=== PATIENT | male | born 1990 | race Caucasian/White ===

== ENCOUNTER 2022-03-01 15:22 | Emergency (ER) | payer OTHER ==
[2022-03-01 15:36] VITALS: BP 157/97
[2022-03-01] MEDS ORDERED: BUPIVACAINE 0.5% PF 10 ML VIAL SUBQ STA (15:42)
[2022-03-01] MEDS ORDERED: TETANUS/DIPHTHERIA/PERTUSSIS 0.5 ML SYRINGE IM ONE (15:42)
--- NOTE | 2022-03-01 15:55 | ED Physician Documentation ---
PD HPI UPPER EXT INJURY - Stated complaint Stated Complaint: LT HAND LAC - Chief complaint Chief Complaint: Laceration - History obtained from History obtained from: Patient - History of Present Illness Location: Left, Finger (index) Type of injury: Laceration Where injury occurred: Home Timing - onset: How many hours ago (1) Timing - duration: Hours (1) Timing - details: Abrupt onset Pain level max: 8 Pain level now: 3 Improved by: Rest, Immobilization Worsened by: Moving, Palpating Associated symptoms: No: Weakness, Numbness, Tingling, Swelling Contributing factors: No: Anticoagulated, Prior ortho surgery Similar symptoms before: Has not had sx before Recently seen: Not recently seen - Additonal information Additional information: Patient with a left index finger laceration versus table saw. Unknown last tetanus shot. Patient is right-handed. Review of Systems Constitutional: denies: Fever, Chills GI: denies: Vomiting, Diarrhea Skin: denies: Rash Musculoskeletal: denies: Neck pain, Back pain Neurologic: denies: Headache PD PAST MEDICAL HISTORY - Past Medical History Past Medical History: No - Past Surgical History Past Surgical History: No - Present Medications Home Medications: Ambulatory Orders Medication Instructions Recorded Confirmed cephALEXin [Keflex] 500 mg PO Q6H #28 cap 03/01/22 - Allergies Allergies/Adverse Reactions: Allergies Allergy/AdvReac Type Severity Reaction Status Date / Time clindamycin Allergy Rash Verified 03/01/22 15:36 - Living Situation Living Situation: reports: With family Living Arrangement: reports: At home - Family History Family history: reports: Non contributory - Immunizations Immunizations: TDAP >10years/unknown PD ED PE NORMAL - Vitals Vital signs reviewed: Yes - General General: Alert and oriented X 3 - HEENT HEENT: Moist mucous membranes - Respiratory Respiratory: No respiratory distress - Derm Derm: Warm and dry - Neuro Neuro: Alert and oriented X 3 - Free text exam Free text exam: L index finger - There is a partial distal tip amputation, no bone exposed. There is a laceration that extends from the nail fold through the base of the nail plate and up to the DIP joint. Neurovascularly intact. PD ED PE EXPANDED - Extremities DAQUAN UE/Hands Visual: 1 - laceration (Laceration 3 cm, linear, through the nail. NVI) Results - Vitals Vitals: Vital Signs - 24 hr 03/01/22 15:33 Temperature 36.4 C L Heart Rate 79 Respiratory 14 Rate Blood Pressure 157/97 H O2 Saturation 97 Oxygen O2 Source Room air - Rads (name of study) L index finger Radiology: Final report received, See rad report Procedures - Laceration (location) Left index finger Length in cm: 3 Wound type: Irregular, Into subcut fat, Contaminated Neurovascular status: Sensory intact, Motor intact, Vascular intact Tendon involvement: Tendon intact Anesthesia: Marcaine 0.5% Wound preparation: Irrigated copiously NS, Wound explored, To the base Skin layer closure: Nylon, Dermabond, Interrupted, Size #-0 - enter number (4) Other: Patient tolerated well, No complications, Neurovascular intact, Dressing applied, Tetanus booster given PD Medical Decision Making - ED course Complexity details: reviewed results, re-evaluated patient, considered differential, d/w patient, d/w family ED course: 32-year-old male with a left index finger laceration on a table saw. Finger x- ray shows a possible small loose body, otherwise negative x-ray. The laceration was repaired with sutures. The distal tip of the finger was repaired using Dermabond after application of a finger tourniquet. The finger tourniquet was then removed with excellent hemostasis. A bandage was then applied to the wound and a splint applied over this to help protect the area. We will put the patient on antibiotics for home. Given Keflex here. He will follow closely with his doctor to ensure proper healing. Patient counseled regarding signs and symptoms for which I believe and urgent re-evaluation would be necessary. Patient with good understanding of and agreement to plan and is comfortable going home at this time This document was made in part using voice recognition software. While efforts are made to proofread this document, sound alike and grammatical errors may occu r. Departure - Departure Disposition: 01 Home, Self Care Clinical Impression: Finger laceration Qualifiers: Encounter type: initial encounter Finger: index finger Damage to nail status: with damage Foreign body presence: without foreign body Laterality: left Qualified Code(s): S61.311A - Laceration without foreign body of left index finger with damage to nail, initial encounter Condition: Good Instructions: ED Laceration Hand Follow-Up: your,doctor in 1 week [Other] Prescriptions: cephALEXin [Keflex] 500 mg PO Q6H #28 cap Comments: Please follow-up with your doctor in about 1 week for a wound check. You should have the sutures removed in approximately 10 to 14 days. Take all antibiotics until gone. Keep the wound clean. Do not apply ointment as this may dissolve the glue. Please return if you worsen. Discharge Date/Time: 03/01/22 16:47
--- NOTE | 2022-03-01 16:19 | XRAY Report ---
PROCEDURE: Finger(s) LT INDICATIONS: index finger vs table saw TECHNIQUE: AP hand, 3 views of the second finger(s) acquired. COMPARISON: None FINDINGS: Bones: No displaced fracture or dislocation. There might be a tiny bone fragment at the tuft of the d istal phalanx. Soft tissues: Suspected soft tissue injury at the tip of the index finger. IMPRESSION: Possible tiny bone fragment at the distal tuft of the distal phalanx. Otherwise no displaced fracture . Suspected distal soft tissue injury. Reviewed by: Toni Barton MD on 03/01/2022 3:18 PM [facility] Approved by: Toni Barton MD on 03/01/2022 3:18 PM [facility] Station ID: [id number]
[2022-03-01] MEDS ORDERED: cephALEXin 250 MG CAPSULE PO STA (16:27)
== END 2022-03-01 16:47 | disposition home or self-care (01) ==
LOC: ED 15:22
DX: S61.311A Laceration without foreign body of left index finger with damage to nail, initial encounter (principal); W27.0XXA Contact with workbench tool, initial encounter; Z23 Encounter for immunization; Z71.85 Encounter for immunization safety counseling
CPT/HCPCS: 12013; 73140; 90471; 90715; 99283; A9270

== ENCOUNTER 2023-10-11 10:25 | Emergency (ER) | payer OTHER ==
[2023-10-11 11:00] VITALS: BP 150/69; O2SAT 97
[2023-10-11 11:07] LABS: BILIRUBIN,URINE NEGATIVE (NEGATIVE); GLUCOSE, URINE (UA) NEGATIVE (NEGATIVE); KETONES,URINE (UA) NEGATIVE (NEGATIVE); LEUKOCYTE ESTERASE, URINE MODERATE (NEGATIVE); NITRITE,URINE NEGATIVE (NEGATIVE); OCCULT BLOOD,URINE MODERATE (NEGATIVE); PROTEIN,URINE NEGATIVE (NEGATIVE); UROBILINOGEN,URINE 0.2 (NORMAL) E.U./dL (NORMAL)
--- NOTE | 2023-10-11 11:09 | ED Physician Documentation ---
PD HPI MALE - Stated complaint Stated Complaint: - Chief complaint Chief Complaint: UTI - History obtained from History obtained from: Patient - History of Present Illness Timing - onset: Yesterday Timing - duration: Days Timing - details: Gradual onset Pain level max: 0 Pain level now: 0 Associated symptoms: Urinary frequency, Other (urgency). No: Unable to urinate, Discharge, Testiclar pain, Scrotal swelling, Abdominal pain, Back pain, Indwelling catheter PD HPI MALE CONTRIB FACTORS: Sexually active. No: Exposed to STD Similar symptoms before: Diagnosis - Additional information Additional information: 33 yo Male presents with urinary frequency and urgency over the last couple of days. He denies any dysuria however, has no flank pain, no hematuria, no abdominal pain. He did have some mild diarrhea prior to developing the urinary symptoms. He denies any penile discharge, no scrotal pain or swelling, no concern for STI. He has had a UTI in the past he believes about a year ago although states that he had UTI symptoms, and was placed on antibiotics but he believes that the culture ultimately was negative. Symptoms feel somewhat similar today though more pronounced. He has never had kidney stones, no prostate issues to his knowledge. Review of Systems Constitutional: reports: Reviewed and negative Eyes: reports: Reviewed and negative Ears: reports: Reviewed and negative Nose: reports: Reviewed and negative Throat: reports: Reviewed and negative Cardiac: reports: Reviewed and negative Respiratory: reports: Reviewed and negative GI: reports: Reviewed and negative : reports: Frequency, Hesitancy. denies: Dysuria, Hematuria, Discharge, Testicular pain, Testicular mass Skin: reports: Reviewed and negative Musculoskeletal: reports: Reviewed and negative Neurologic: reports: Reviewed and negative Psychiatric: reports: Reviewed and negative Endocrine: reports: Reviewed and negative PD PAST MEDICAL HISTORY - Past Medical History Past Medical History: No - Past Surgical History Past Surgical History: No - Present Medications Home Medications: Ambulatory Orders Medication Instructions Recorded Confirmed Cefuroxime Axetil [Cefuroxime] 500 mg PO BID 7 Days #14 tablet 10/11/23 - Allergies Allergies/Adverse Reactions: Allergies Allergy/AdvReac Type Severity Reaction Status Date / Time clindamycin Allergy Rash Verified 10/11/23 10:59 - Social History Does the pt smoke?: No Smoking Status: Never smoker Does the pt drink ETOH?: No Does the pt have substance abuse?: No - Immunizations Immunizations are current?: Yes Immunizations: TDAP >10years/unknown - POLST Patient has POLST: No PD ED PE NORMAL - Vitals Vital signs reviewed: Yes - General General: Alert and oriented X 3, No acute distress, Well developed/nourished - HEENT HEENT: Atraumatic, Moist mucous membranes - Cardiac Cardiac: RRR, No murmur - Respiratory Respiratory: No respiratory distress, Clear bilaterally - Abdomen Abdomen: Normal bowel sounds, Soft, Non tender, Non distended - Back Back: No CVA TTP - Derm Derm: Normal color, Warm and dry, No rash Results - Vitals Vitals: Vital Signs - 24 hr 10/11/23 10:56 Temperature 37.3 C Heart Rate 58 L Respiratory 20 Rate Blood Pressure 150/69 H O2 Saturation 97 Oxygen O2 Source Room air - Labs Labs: Laboratory Tests 10/11/23 10:51 Urine Color YELLOW Urine Clarity SL. CLOUDY Urine pH 6.0 Ur Specific [place] 1.015 Urine Protein NEGATIVE Urine Glucose (UA) NEGATIVE Urine Ketones NEGATIVE Urine Occult Blood MODERATE H Urine Nitrite NEGATIVE Urine Bilirubin NEGATIVE Urine Urobilinogen 0.2 (NORMAL) Ur Leukocyte Esterase MODERATE H Urine RBC 6-10 H Urine WBC >25 H Ur Squamous Epith Cells RARE Squamous Urine Bacteria Moderate H Ur Microscopic Review INDICATED Urine Culture Comments INDICATED PD Medical Decision Making - ED course Complexity details: reviewed results, re-evaluated patient, considered differential, d/w patient ED course: 33-year-old male presented with urinary frequency and urgency over the last couple of days. He had does not have any flank pain, no fever, no nausea or vomiting. Differentials considered include urinary tract infection, STI, ureteral stone, pyelonephritis, among others. The patient does not have any flank pain or fever however And actually no pain at all therefore I think unlikely to be a ureteral stone or pyelonephritis. Urinalysis is suggestive of infection however and therefore I am going to treat with cefuroxime pending urine culture. Patient has had similar symptoms in the past within the last year he believes and I discussed with him that it is a bit unusual to have 2 urinary tract infections in a short period of time for a male of his age show recommended follow-up with PCP and consider evaluation by urology if recurrent cyst. Return precautions reviewed if he developed a fever, flank pain, or symptoms not resolved by antibiotics or new concerns. Departure - Departure Disposition: Home, Self Care Clinical Impression: Urinary tract infection Qualifiers: Urinary tract infection type: acute cystitis Hematuria presence: without hematuria Qualified Code(s): N30.00 - Acute cystitis without hematuria Condition: Good Instructions: ED UTI Cystitis Male Follow-Up: Albino Rg MD [Provider Admit Priv/Credential] - Prescriptions: Cefuroxime Axetil [Cefuroxime] 500 mg PO BID 7 Days #14 tablet Comments: Your urinalysis is suggestive of a urinary tract infection. As we discussed, it is a little bit unusual for someone your age to have had 2 urinary tract infections in the recent past. I do recommend a follow-up with your primary doctor and possibly the urologist as well to see if there is any structural abnormality that is causing you to have a urinary tract infections. If you develop a fever, flank pain, vomiting, scrotal pain or swelling, penile discharge, or if your symptoms do not improve with a course of antibiotics, please follow-up in the emergency department. We will send your urine for a culture and if it grows A bacteria that is resistant or we need to change antibiotics, we will notify you by phone. Your medication was sent to [facility] pharmacy.
[2023-10-11 11:14] LABS: BACTERIA,URINE Moderate /HPF (None Seen); CLARITY,URINE SL. CLOUDY (CLEAR); SQUAMOUS EPITHELIAL CELL,UR RARE Squamous (<= Few); WBC,URINE >25 /HPF (0-3)
== END 2023-10-11 11:39 | disposition home or self-care (01) ==
LOC: ED 10:25
DX: N30.00 Acute cystitis without hematuria (principal)
CPT/HCPCS: 81001; 81003; 87086; 99283

== ENCOUNTER 2023-10-11 18:51 | Observation (INO) | payer OTHER ==
--- NOTE | 2023-10-11 19:11 | ED Physician Documentation ---
PD HPI MALE - Stated complaint Stated Complaint: - Chief complaint Chief Complaint: UTI - History obtained from History obtained from: Patient - Additional information Additional information: 33-year-old male presents with inability to void. He was seen here earlier today and diagnosed with a urinary tract infection and a was started on antibiotics. At that time he was able to void small amounts, and had no pain, no flank pain and no suspicion for ureteral stone at that time however patient then went home and has had difficulty voiding since then and is now feeling a lot of pressure in his pelvis. He has not had any fever, no vomiting. Review of Systems Constitutional: reports: Reviewed and negative Eyes: reports: Reviewed and negative Ears: reports: Reviewed and negative Nose: reports: Reviewed and negative Throat: reports: Reviewed and negative Cardiac: reports: Reviewed and negative Respiratory: reports: Reviewed and negative GI: reports: Abdominal Pain. denies: Abdominal Swelling, Nausea, Vomiting, Constipation, Diarrhea : reports: Hesitancy, Unable to Void Skin: reports: Reviewed and negative Musculoskeletal: reports: Reviewed and negative Neurologic: reports: Reviewed and negative Psychiatric: reports: Reviewed and negative Endocrine: reports: Reviewed and negative PD PAST MEDICAL HISTORY - Past Medical History Past Medical History: Yes Cardiovascular: None Respiratory: None Neuro: None Endocrine/Autoimmune: None GI: None : None HEENT: None Psych: None Musculoskeletal: None Derm: None - Past Surgical History Past Surgical History: Yes Ortho: Other - Present Medications Home Medications: Ambulatory Orders Medication Instructions Recorded Confirmed Cefuroxime Axetil [Cefuroxime] 500 mg PO BID 7 Days #14 tablet 10/11/23 10/11/23 - Allergies Allergies/Adverse Reactions: Allergies Allergy/AdvReac Type Severity Reaction Status Date / Time clindamycin Allergy Rash Verified 10/11/23 18:57 - Social History Does the pt smoke?: No Smoking Status: Never smoker Does the pt drink ETOH?: No Does the pt have substance abuse?: No - Immunizations Immunizations are current?: Yes Immunizations: TDAP >10years/unknown - POLST Patient has POLST: No PD ED PE NORMAL - Vitals Vital signs reviewed: Yes - General General: Alert and oriented X 3, Well developed/nourished, Other (Appears uncomfortable, pacing, restless) - HEENT HEENT: Atraumatic, Moist mucous membranes - Cardiac Cardiac: No murmur, No gallop, Other (Tachycardic) - Respiratory Respiratory: No respiratory distress, Clear bilaterally - Abdomen Abdomen: Normal bowel sounds, Soft, Other (Bladder distention) - Back Back: No CVA TTP - Derm Derm: Normal color, Warm and dry, No rash Results - Vitals Vitals: Vital Signs - 24 hr 10/11/23 10/11/23 10/11/23 18:58 20:25 21:05 Temperature 37.3 C Heart Rate 125 H 110 H 114 H Respiratory 28 H 20 15 Rate Blood Pressure 167/106 H 112/75 110/74 O2 Saturation 100 99 95 Oxygen O2 Source Room air - Labs Labs: Laboratory Tests 10/11/23 10/11/23 19:07 19:07 WBC 4.4 L RBC 4.99 Hgb 15.5 Hct 44.7 MCV 89.6 MCH 31.1 H MCHC 34.7 RDW 12.3 Plt Count 167 MPV 8.0 Neut # (Auto) 4.0 Lymph # (Auto) 0.3 L [place] # (Auto) 0.0 Eos # (Auto) 0.0 Baso # (Auto) 0.0 Absolute Nucleated RBC 0.00 Nucleated RBC % 0.0 Sodium 139 Potassium 3.3 L Chloride 104 Carbon Dioxide 23 Anion Gap 12.0 BUN 15 Creatinine 1.1 Estimated GFR (MDRD) 78 L Glucose 122 H Calcium 10.2 Total Bilirubin 1.0 AST 21 ALT 30 Alkaline Phosphatase 65 Total Protein 7.5 Albumin 5.0 Globulin 2.5 Albumin/Globulin Ratio 2.0 Lipase 14 - Rads (name of study) No standard instances Relevant Findings:: Final report received PD Medical Decision Making - ED course Complexity details: reviewed results, re-evaluated patient, considered differential, d/w patient, d/w project consultant ED course: 33-year-old male presented with inability to void. He was seen earlier today with signs of UTI and started on antibiotics which she started. After he got home he was unable to void at all and presented with suprapubic pain and urgency to void but unable to pass any urine. He had not had a fever, had no nausea or vomiting. Bladder scan revealed greater than 1000ml. The patient was then able to void 150-200mls posterior void but PVR remained around 900 and therefore he recommended that we place a Ortiz catheter. Unfortunately after multiple attempts both by the RN and myself we were unable to pass the Ortiz catheter as we met obstruction quite proximally probably up at the bladder neck. Multiple sizes and types of catheters were attempted. Patient was given Dilaudid and Valium which helped with his discomfort and a another attempt at passing urinary catheter was made but unfortunately it was unsuccessful. I talked with the urologist on-call, Dr. Rg, advised that if patient's pain is well-controlled at this time he that he would admit the patient and evaluate tomorrow. He can admit for pain control and monitoring. He suspects that there is likely some scar tissue that is prohibiting us from passing out urinary catheter. I discussed this with patient and he is agreeable to admit, I will start the patient on tamsulosin and continue as needed pain control. Pt to remain NPO after midnight. Departure - Departure Disposition: ED Place in Observation Clinical Impression: Acute urinary retention Condition: Good
[2023-10-11 19:15] LABS: BASOPHILS % (AUTO) 0.5 %; EOSINOPHILS % (AUTO) 0.5 %; HCT - HEMATOCRIT 44.7 % (42.0-52.0); HGB - HEMOGLOBIN 15.5 g/dL (14.0-18.0); LYMPHOCYTES # (AUTO) 0.3 10^3/uL (1.5-3.5); LYMPHOCYTES % (AUTO) 6.8 %; MEAN CORPUSCULAR HEMOGLOBIN 31.1 pg (27.0-31.0); MEAN CORPUSCULAR HGB CONC 34.7 g/dL (32.0-36.0); MEAN CORPUSCULAR VOLUME 89.6 fL (80.0-94.0); MONOCYTES % (AUTO) 0.5 %; NEUTROPHILS % (AUTO) 90.8 %; PLT - PLATELET COUNT 167 10^3/uL (130-450); RED BLOOD COUNT 4.99 10^6/uL (4.70-6.10); RED CELL DISTRIBUTION WIDTH 12.3 % (12.0-15.0); WHITE BLOOD COUNT 4.4 x10^3/uL (4.8-10.8)
[2023-10-11] MEDS: LIDOCAINE 2% URO-JET 5 ML SYRINGE UR STA (19:20)
[2023-10-11] MEDS: KETOROLAC 30 MG/ML VIAL IVP STA (19:20)
[2023-10-11] MEDS: SODIUM CHLORIDE 0.9% 1,000 ML IV STA (19:21)
[2023-10-11 19:35] LABS: CALCIUM 10.2 mg/dL (8.5-10.3); CREATININE 1.1 mg/dL (0.6-1.3); POTASSIUM 3.3 mmol/L (3.5-4.5); TOTAL PROTEIN 7.5 g/dL (6.4-8.9)
[2023-10-11] MEDS: HYDROmorphone 1 MG/ML CARPUJECT IVP STA (20:23)
[2023-10-11] MEDS: diazePAM INJ 5 MG/ML SYRINGE IVP STA (20:51)
[2023-10-11] MEDS: TAMSULOSIN 0.4 MG CAPSULE PO STA (21:42)
[2023-10-11] MEDS ORDERED: SODIUM CHLORIDE FLUSH 0.9% 10 ML SYRINGE IVP PRN (21:58)
[2023-10-11] MEDS ORDERED: ZOLPIDEM 5 MG TABLET PO PRN (21:58)
[2023-10-11] MEDS ORDERED: MORPHINE 2 MG/ML CARPUJECT IVP PRN (21:58)
[2023-10-11] MEDS ORDERED: PROMETHAZINE 25 MG/1 ML VIAL IM PRN (21:58)
[2023-10-11] MEDS ORDERED: oxyCODONE 5 MG TABLET PO PRN (21:58)
[2023-10-11] MEDS: SOLIFENACIN SUCCINATE 5 MG TABLET PO SCH (22:40)
[2023-10-11] MEDS: SODIUM CHLORIDE FLUSH 0.9% 10 ML SYRINGE IVP SCH (22:41)
--- NOTE | 2023-10-11 22:58 | CT Report ---
PROCEDURE: Abdomen/Pelvis WO INDICATIONS: flank pain TECHNIQUE: A CT scan of the abdomen and pelvis was performed without the use of intravenous contrast. Images we re recorded and evaluated at appropriate window settings. Reformats: coronal and sagittal. For radiat ion dose reduction, the following was used: automated exposure control, adjustment of mA and/or kV ac cording to patient size. COMPARISON: None. FINDINGS: Image quality: Diagnostic. Lower chest: Unremarkable. Liver: No contour-deforming mass. Gallbladder: No radiopaque stones or wall thickening. Biliary tree: No intrahepatic or extrahepatic dilation, accounting for age. Spleen: No splenomegaly. Pancreas: No pancreatic ductal dilation. Adrenals: No adrenal nodule. Kidneys and ureters: Punctate nonobstructing right renal calculi measuring 1 to 2 mm. No ureteral marci culus. Mild bilateral hydroureteronephrosis. Stomach, bowel and peritoneum: No gastric or small bowel dilation. No abnormal wall thickening. No pa thologic free fluid. Lymph nodes: No central or retroperitoneal adenopathy. Vessels: No infrarenal aortic aneurysm. Reproductive organs: Bilateral scrotal clips.. Bladder: Mild circumferential bladder wall thickening. No bladder calculus. Pelvic lymph nodes: No adenopathy by size criteria. Bones: No aggressive osseous abnormality. Other: No significant ventral or inguinal hernia. IMPRESSION: 1.Mild circumferential bladder wall thickening is suspicious for cystitis. Recommend correlation with urinalysis. 2.Mild bilateral hydroureteronephrosis. No obstructing calculus. Recommend correlation to exclude an ascending infection. No significant perinephric stranding. 3.Punctate 1 to 2 mm nonobstructing right renal calculi. Reviewed by: John Myers MD on 10/11/2023 10:57 PM PDT Approved by: John Myers MD on 10/11/2023 10:57 PM PDT Station ID: [id number]
[2023-10-12] MEDS: ACETAMINOPHEN 325 MG TABLET PO PRN (00:28)
--- NOTE | 2023-10-12 07:47 | CONSULTATION NOTE ---
Referring Provider Name of Referring Provider:: SMILEY Boy Consult Date: 10/11/23 Chief Complaint - Chief Complaint Chief Complaint: Urinary retention History of Present Illness - Admitted From Admitted From:: ER - History Obtained From Records Reviewed: ER History obtained from: patient and ER Exam Limitations: none - History of Present Illness HPI Comment/Other: 33-year-old man with a history of vasectomy 2 years ago, history of a UTI reportedly a year ago presented yesterday to the ER with burning, dysuria, frequency and urgency of urination. He had a urinalysis which was concerning for infection. He was started empiric cefdinir therapy. He was then sent home. He represented a few hours later with inability urinate with a bladder scan 1200 cc. Catheters were attempted to be placed multiple times by the nursing staff with inability to pass both a 16 Lao coud along with a 14 Lao silicone. Urology was consulted. At that time the patient was able to void about 400 cc and he was comfortable. As it was late in the day we elected to admit him in to the hospital for procedure the following day. This morning patient states that he has been voiding a small amount. His last bladder scan was 350 cc. He is comfortable. He is afebrile. His vitals are stable. History - Past Medical History Cardiovascular: reports: None Respiratory: reports: None Neuro: reports: None Endocrine/Autoimmune: reports: None GI: reports: None : reports: None HEENT: reports: None Psych: reports: None Musculoskeletal: reports: None Derm: reports: None MRSA Hx?: No - Past Surgical History Ortho: reports: Other - Family & Social History Living Situation: With family - POLST Patient has POLST: No Meds/Allgy - Home Medications Home Medications: Ambulatory Orders Medication Instructions Recorded Confirmed Cefuroxime Axetil [Cefuroxime] 500 mg PO BID 7 Days #14 tablet 10/11/23 10/11/23 - Allergies Allergies/Adverse Reactions: Allergies Allergy/AdvReac Type Severity Reaction Status Date / Time clindamycin Allergy Rash Verified 10/11/23 18:57 Exam - Vital Signs Reviewed Vital Signs: Yes Vital Signs: Vital Signs x48h Temp Pulse Resp BP Pulse Ox 10/12/23 03:23 37.1 C 10/12/23 03:07 37.0 C 104 H 16 101/56 L 97 10/12/23 01:43 37.6 C 108 H - Physical Exam General Appearance: positive: No acute distress Respiratory: positive: Breath sounds nml Cardiovascular: positive: Regular rate & rhythm Conclusion and Plan - Lab Results Laboratory Results 10/11/23 19:07: Sodium 139, Potassium 3.3 L, Chloride 104, Carbon Dioxide 23, Anion Gap 12.0, BUN 15, Creatinine 1.1, Estimated GFR (MDRD) 78 L, Glucose 122 H, Calcium 10.2, Total Bilirubin 1.0, AST 21, ALT 30, Alkaline Phosphatase 65, Total Protein 7.5, Albumin 5.0, Globulin 2.5, Albumin/Globulin Ratio 2.0, Lipase 14 10/11/23 19:07: WBC 4.4 L, RBC 4.99, Hgb 15.5, Hct 44.7, MCV 89.6, MCH 31.1 H, MCHC 34.7, RDW 12.3, Plt Count 167, MPV 8.0, Neut # (Auto) 4.0, Lymph # (Auto) 0.3 L, [place] # (Auto) 0.0, Eos # (Auto) 0.0, Baso # (Auto) 0.0, Absolute Nucleated RBC 0.00, Nucleated RBC % 0.0 - Diagnosis Diagnosis: Urinary retention. Acute cystitis - Consultation Note Consultation Note: 33-year-old healthy male with a history of UTI 1 year ago. Now presents with UTI and urinary retention. This has improved overnight. But his PVR is still elevated [address] scan benign - Plan Plan: N.p.o. Add on for cystoscopy, urethral dilation. Risk, benefits, terms were discussed with the patient. Specific risks of infection, bleeding, injury to adjacent structures, need for additional procedures, pain, failure of therapy, need for catheter discussed Antibiotic switched to Bactrim as has better coverage. Home later today pending results of procedure
[2023-10-12] MEDS: IBUPROFEN 400 MG TABLET PO PRN (08:09)
[2023-10-12] MEDS: SULFAMETH/TRIMETH DS 800/160 MG TABLET PO SCH (08:09)
--- NOTE | 2023-10-12 10:46 | PHARMACY PROGRESS NOTE ---
- Best Possible Medication History Admit Date and Time: 10/11/23 0336 Processed by: Pharmacy Medications reviewed in ED?: No Medication History completed: Yes Patient Interview: Completed Secondary Source(s): Insurance records As the person ultimately responsible for medication therapy, providers are able to order a medication from an existing home medication list in [facility] via the "Reconcile Routine" prior to Confirmation of that medication by sales support specialist. Such practice is discouraged except when the physician, in their clinical judgment, deems that a medical need exists for a medication without regard to previous use.
[2023-10-12] MEDS ORDERED: ATROPINE ABBOJECT 1 MG/10 ML SYRINGE IVP PRN (11:11)
[2023-10-12] MEDS ORDERED: METOCLOPRAMIDE 10 MG/2 ML VIAL IVP PRN (11:11)
[2023-10-12] MEDS ORDERED: ONDANSETRON 4 MG/2 ML VIAL IVP PRN ×2 (11:11→14:01)
[2023-10-12] MEDS ORDERED: NALOXONE 0.4 MG/ML VIAL IVP PRN (11:11)
[2023-10-12] MEDS ORDERED: fentaNYL 100 MCG/2 ML VIAL IVP PRN (11:11)
[2023-10-12] MEDS ORDERED: HYDROmorphone 0.5 MG/0.5 ML SYRINGE IVP PRN (11:11)
[2023-10-12] MEDS ORDERED: MORPHINE 2 MG/ML CARPUJECT IVP PRN (11:11)
[2023-10-12] MEDS ORDERED: ePHEDrine 50 MG/ML VIAL IVP PRN (11:11)
--- NOTE | 2023-10-12 11:11 | ANESTHESIA ---
Pre-Anesthesia VS, & Labs - Diagnosis Diagnosis Urinary retention Acute cystitis - Procedure cysto/ureteral dilation Vital Signs: Temp Pulse Resp BP Pulse Ox O2 Flow Rate 37.1 C 91 16 106/66 98 10/12/23 08:00 10/12/23 08:00 10/12/23 08:00 10/12/23 08:00 10/12/23 08:00 Height: 6 ft Weight (kg): 80.5 kg Body Mass Index: 24.0 BMI Classification: Normal - NPO >8 hours Last Fluid Intake: sip w meds - Lab Results Current Lab Results: Laboratory Tests 10/11/23 19:07: Sodium 139, Potassium 3.3 L, Chloride 104, Carbon Dioxide 23, Anion Gap 12.0, BUN 15, Creatinine 1.1, Estimated GFR (MDRD) 78 L, Glucose 122 H , Calcium 10.2, Total Bilirubin 1.0, AST 21, ALT 30, Alkaline Phosphatase 65, Total Protein 7.5, Albumin 5.0, Globulin 2.5, Albumin/Globulin Ratio 2.0, Lipase 14 10/11/23 19:07: WBC 4.4 L, RBC 4.99, Hgb 15.5, Hct 44.7, MCV 89.6, MCH 31.1 H, MCHC 34.7, RDW 12.3, Plt Count 167, MPV 8.0, Neut # (Auto) 4.0, Lymph # (Auto) 0.3 L, [place] # (Auto) 0.0, Eos # (Auto) 0.0, Baso # (Auto) 0.0, Absolute Nucleated RBC 0.00, Nucleated RBC % 0.0 Lab results reviewed: Yes Fish Bones: 10/11/23 19:07 10/11/23 19:07 Home Medications and Allergies Active Medications Acetaminophen (Acetaminophen 325 Mg Tablet) 650 mg PO Q4HR PRN PRN Reason: Pain 1 to 4, or Fever Last Admin: 10/12/23 00:28 Dose: 650 mg Ibuprofen (Ibuprofen 400 Mg Tablet) 400 mg PO Q4HR PRN PRN Reason: Pain 1 to 4 Last Admin: 10/12/23 08:09 Dose: 400 mg Morphine Sulfate (Morphine 2 Mg/Ml Carpuject) 2 mg IVP Q2HR PRN PRN Reason: Pain 8 to 10 Oxycodone HCl (Oxycodone 5 Mg Tablet) 5 mg PO Q4HR PRN PRN Reason: Pain 5 to 7 Promethazine HCl (Promethazine 25 Mg/1 Ml Vial) 25 mg IM Q6HR PRN PRN Reason: Nausea / Vomiting Sodium Chloride (Sodium Chloride Flush 0.9% 10 Ml Syringe) 10 ml IVP PRN PRN PRN Reason: NEEDED PER PROVIDER ORDERS Sodium Chloride (Sodium Chloride Flush 0.9% 10 Ml Syringe) 10 ml IVP 0100,0900,1700 [facility] Last Admin: 10/12/23 08:10 Dose: 10 ml Solifenacin (Solifenacin Succinate 5 Mg Tablet) 5 mg PO DAILY [facility] Last Admin: 10/12/23 08:09 Dose: 5 mg Trimethoprim/Sulfamethoxazole (Sulfameth/Trimeth Ds 800/160 Mg Tablet) 1 tab PO BID [facility] Last Admin: 10/12/23 08:09 Dose: 1 tab Zolpidem Tartrate (Zolpidem 5 Mg Tablet) 5 mg PO QPM PRN PRN Reason: Insomnia Allergies/Adverse Reactions: Allergies Allergy/AdvReac Type Severity Reaction Status Date / Time clindamycin Allergy Rash Verified 10/11/23 18:57 Anes History & Medical History - Anesthetic History Anesthesia Complications: reports: No previous complications Family history of Anesthesia Complications: Denies - Medical History Cardiovascular: reports: None Pulmonary: reports: None Gastrointestinal: reports: None Urinary: reports: None Neuro: reports: None Musculoskeletal: reports: None Endocrine/Autoimmune: reports: None Blood Disorders: reports: None Skin: reports: None Smoking Status: Never smoker Psychosocial: reports: No issues indicated - Surgical History Orthopedic: reports: Other Exam General: Alert, Oriented x3 Dental: WNL Mouth Openin Fingerbreadth Neck Mobility: Normal Mallampati classification: II Thyromental Distance: 4-6 cm Respiratory: Lungs clear Cardiovascular: Regular rate Plan Anesthesia Type: General Consent for Procedure(s) Verified and Reviewed: Yes Code Status: Attempt Resuscitation ASA classification: 1-Healthy patient Is this case an emergency?: No
--- NOTE | 2023-10-12 11:12 | ANESTHESIA ---
Pre-Anesthesia VS, & Labs - Diagnosis Diagnosis Urinary retention Acute cystitis - Procedure cysto, urethral dilation, placement of pepe catheter Vital Signs: Temp Pulse Resp BP Pulse Ox O2 Flow Rate 37.1 C 91 16 106/66 98 10/12/23 08:00 10/12/23 08:00 10/12/23 08:00 10/12/23 08:00 10/12/23 08:00 Height: 6 ft Weight (kg): 80.5 kg Body Mass Index: 24.0 BMI Classification: Normal - NPO >8 hours - Lab Results Current Lab Results: Laboratory Tests 10/11/23 19:07: Sodium 139, Potassium 3.3 L, Chloride 104, Carbon Dioxide 23, Anion Gap 12.0, BUN 15, Creatinine 1.1, Estimated GFR (MDRD) 78 L, Glucose 122 H , Calcium 10.2, Total Bilirubin 1.0, AST 21, ALT 30, Alkaline Phosphatase 65, Total Protein 7.5, Albumin 5.0, Globulin 2.5, Albumin/Globulin Ratio 2.0, Lipase 14 10/11/23 19:07: WBC 4.4 L, RBC 4.99, Hgb 15.5, Hct 44.7, MCV 89.6, MCH 31.1 H, MCHC 34.7, RDW 12.3, Plt Count 167, MPV 8.0, Neut # (Auto) 4.0, Lymph # (Auto) 0.3 L, [place] # (Auto) 0.0, Eos # (Auto) 0.0, Baso # (Auto) 0.0, Absolute Nucleated RBC 0.00, Nucleated RBC % 0.0 Fish Bones: 10/11/23 19:07 10/11/23 19:07 Home Medications and Allergies Active Medications Acetaminophen (Acetaminophen 325 Mg Tablet) 650 mg PO Q4HR PRN PRN Reason: Pain 1 to 4, or Fever Last Admin: 10/12/23 00:28 Dose: 650 mg Ibuprofen (Ibuprofen 400 Mg Tablet) 400 mg PO Q4HR PRN PRN Reason: Pain 1 to 4 Last Admin: 10/12/23 08:09 Dose: 400 mg Morphine Sulfate (Morphine 2 Mg/Ml Carpuject) 2 mg IVP Q2HR PRN PRN Reason: Pain 8 to 10 Oxycodone HCl (Oxycodone 5 Mg Tablet) 5 mg PO Q4HR PRN PRN Reason: Pain 5 to 7 Promethazine HCl (Promethazine 25 Mg/1 Ml Vial) 25 mg IM Q6HR PRN PRN Reason: Nausea / Vomiting Sodium Chloride (Sodium Chloride Flush 0.9% 10 Ml Syringe) 10 ml IVP PRN PRN PRN Reason: NEEDED PER PROVIDER ORDERS Sodium Chloride (Sodium Chloride Flush 0.9% 10 Ml Syringe) 10 ml IVP 0100,0900,1700 [facility] Last Admin: 10/12/23 08:10 Dose: 10 ml Solifenacin (Solifenacin Succinate 5 Mg Tablet) 5 mg PO DAILY [facility] Last Admin: 10/12/23 08:09 Dose: 5 mg Trimethoprim/Sulfamethoxazole (Sulfameth/Trimeth Ds 800/160 Mg Tablet) 1 tab PO BID [facility] Last Admin: 10/12/23 08:09 Dose: 1 tab Zolpidem Tartrate (Zolpidem 5 Mg Tablet) 5 mg PO QPM PRN PRN Reason: Insomnia Allergies/Adverse Reactions: Allergies Allergy/AdvReac Type Severity Reaction Status Date / Time clindamycin Allergy Rash Verified 10/11/23 18:57 Anes History & Medical History - Medical History Cardiovascular: reports: None Pulmonary: reports: None Gastrointestinal: reports: None Urinary: reports: None Neuro: reports: None Musculoskeletal: reports: None Endocrine/Autoimmune: reports: None Blood Disorders: reports: None Skin: reports: None Smoking Status: Never smoker - Surgical History Orthopedic: reports: Other Exam General: Alert, Oriented x3 Dental: WNL Mouth Openin Fingerbreadth Neck Mobility: Normal Mallampati classification: II Thyromental Distance: 4-6 cm Respiratory: Lungs clear Plan Anesthesia Type: General Consent for Procedure(s) Verified and Reviewed: Yes Code Status: Attempt Resuscitation ASA classification: 1-Healthy patient Is this case an emergency?: No
[2023-10-12] MEDS ORDERED: LACTATED RINGERS 1,000 ML IV SCH (12:00)
[2023-10-12] MEDS ORDERED: fentaNYL 100 MCG/2 ML VIAL ONE (13:03)
[2023-10-12] MEDS ORDERED: PROPOFOL 200 MG/20 ML VIAL IVP ONE ×2 (13:03→13:44)
[2023-10-12] MEDS ORDERED: MIDAZOLAM 2 MG/2 ML VIAL ONE (13:03)
[2023-10-12] MEDS ORDERED: LIDOCAINE-PF 2% 10 ML AMP SUBQ ONE (13:03)
[2023-10-12] MEDS: LIDOCAINE 2% URO-JET 5 ML SYRINGE UR ONE (13:07)
[2023-10-12] MEDS ORDERED: LIDOCAINE 2% URO-JET 5 ML SYRINGE UR ONE (13:07)
[2023-10-12] MEDS ORDERED: DEXAMETHASONE 4 MG/ML VIAL ONE (13:36)
[2023-10-12] MEDS ORDERED: ONDANSETRON 4 MG/2 ML VIAL ONE (13:36)
[2023-10-12] MEDS: LACTATED RINGERS 1,000 ML IV ONE (13:54)
[2023-10-12] MEDS ORDERED: HYDROcod/ACETAM 5/325 MG TABLET PO PRN (14:01)
--- NOTE | 2023-10-12 14:05 | Discharge Plan ---
Discharge Plan Problem Reviewed?: Yes Disposition: Home, Self Care Condition: Good Prescriptions: Sulfamethox/Trimeth 800/160 [Bactrim Ds] 1 tablet PO BID 7 Days #14 tablet oxyCODONE [Roxicodone] 5 mg PO Q6H PRN #10 tablet PRN Reason: Pain >8 Diet: Regular Activity Restrictions: Additional Comments (as instructed) Shower Restrictions: No Driving Restrictions: No Instruction Topics: ED Stricture Urethral, Ortiz Catheter Remove, Catheter Bag Urinary Empty Clean Additional Instructions or Follow Up instructions: You will be contacted for follow-up in [address] Rg No Smoking: If you smoke, Please STOP! Call for help. Follow-up with: Argenis Devries MD [Primary Care Provider] - Albino Rg MD [Provider Admit Priv/Credential] -
--- NOTE | 2023-10-12 14:12 | OPERATIVE REPORT ---
Operative Report - General Admit Date: 10/11/23 Procedure Date: 10/12/23 Planned Procedure: Cystoscopy, urethral dilation Pre-Op Diagnosis: Urinary retention Procedure Performed: Cystoscopy, urethral dilation, complex pepe placement Post Op Diagnosis: Urinary retention, bulbar urethral stricture - Procedure Note Primary Surgeon: Arcenio Anesthesia Provider: FAZAL Pride Anesthesia Technique: General LMA Pathology: none Estimated Blood Loss (mL): 2 Findings: Dense stricture bulbar urethra dilated to 24f Complications: none - Other Other Information/Narrative: After informed sent was obtained the patient was brought to the OR and laid in the supine position. The patient was anesthetized per anesthesia protocols and prepped draped in usual sterile fashion in the dorsolithotomy position. A formal timeout was performed reconfirming the patient and procedure. A 22 Moldovan the scope was advanced per urethra to his bulbar urethra where we could see there was almost a fully ablated off urethral mucosa in the bulbar urethra. There was no obvious flap or lumen. Using a Crede maneuver we could see perhaps a small jets of yellow urine coming from an anterior position. This was gently probed with a sensor wire and it did seem to cannulate. This was advanced forward. The scope was removed and a 5 Moldovan open-ended catheter was placed over the wire. This showed clear yellow urine returning. We then placed a Super Stiff Amplatz wire and then dilated over this wire from 5 Moldovan up to 24 Moldovan sequentially. We then reinspected the urethra with the cystoscope and we could see a wide open channel through a stricture in the bulbar urethra. His sphincter appears normal. His prostate was wide open. His bladder was relatively wide but no obvious mucosal lesions. We drained his bladder and then placed a Uro-Jet and then over the Super Stiff wire we placed an 18 Moldovan tlingit & haida tip catheter with 15 cc in the balloon. This was placed to gravity drainage. This concluded procedure the patient tolerated procedure well. He was brought to the PACU without further incident. He will be discharged from the floor today. He will keep the catheter in place for 3 days. He will follow-up in 3 months time
--- NOTE | 2023-10-12 14:14 | DISCHARGE SUMMARY ---
"Discharge Summary Admit Date: 10/11/23 Discharge Date: 10/12/23 Discharging Provider: Arcenio Condition at Discharge: Good Discharge Disposition: 01 Home, Self Care - DIAGNOSES Admission Diagnoses: Urinary retention Discharge Diagnoses with Status of Each Condition: Urinary retention- resolved - HPI History of Present Illness: 33-year-old male presented with a UTI during the day on October 10. He Edie presented a few hours later with urinary retention. Catheters could not be placed by nursing staff in the ER. He was able to void about 300 cc to his comfort. We elected to keep him overnight for possible procedure in the morning. - CONSULTS | PROCEDURES Consultations: Urology Procedures: Cystoscopy, urethral dilation, complex pepe placement - HOSPITAL COURSE Hospital Course: He was taken to the OR on October 11 and underwent a cystoscopy, urethral dilation and complex Pepe placement. He was discharged home later that day with a Pepe catheter in place. He will keep the catheter in place for 3 days and remove it himself. He will follow-up with Dr. Rg in 3 months time - ALLERGIES Allergies/Adverse Reactions: Allergies Allergy/AdvReac Type Severity Reaction Status Date / Time clindamycin Allergy Rash Verified 10/11/23 18:57 - MEDICATIONS Home Medications: Ambulatory Orders Medication Instructions Recorded Confirmed Sulfamethox/Trimeth 800/160 1 tablet PO BID 7 Days #14 tablet 10/12/23 [Bactrim Ds] oxyCODONE [Roxicodone] 5 mg PO Q6H PRN #10 tablet 10/12/23 - PHYSICAL EXAM AT DISCHARGE General Appearance: positive: No acute distress Abdomen: positive: Other (18f viejas tip catheter in place, cyu) - LABS Result Diagrams: 10/11/23 19:07 10/11/23 19:07 - QUALITY (Female Hip Fx Only) Was patient sent home on osteoporosis medication?: No - FOLLOW UP Follow Up: Dr Rg in 3 months - TIME SPENT Time Spent in Discharge (Minutes): 15"
--- NOTE | 2023-10-12 15:00 | ANESTHESIA POST OP EVALUATION ---
Anesthesia Post Eval - Post Anesthesia Eval Vitals: Last Vital Signs Temp 36.7 C 10/12/23 14:41 Pulse 77 10/12/23 14:41 Resp 16 10/12/23 14:41 BP 101/62 10/12/23 14:41 Pulse Ox 98 10/12/23 14:41 O2 Flow Rate CV Function Including HR & BP: Stable Pain Control: Satisfactory Nausea & Vomiting: Negative Mental Status: Baseline Respiratory Status: Airway Patent Hydration Status: Satisfactory Anesthesia Complications: None
[2023-10-12 15:51] VITALS: BP 112/73; O2SAT 95
== END 2023-10-12 16:50 | disposition home or self-care (01) ==
LOC: ED 18:51 → MS2 21:58
PROVIDERS: ADMIT Urology; ATTEND Urology
DX: R33.9 Retention of urine, unspecified (principal); N39.0 Urinary tract infection, site not specified; N35.912 Unspecified bulbous urethral stricture, male
CPT/HCPCS: 36415; 52281; 74176; 80053; 83690; 85025; 96374; 96375; 99284; 99285; A9270; C1758; J1170; J7120